=== PATIENT | female | born 1975 | race Caucasian/White ===

== ENCOUNTER 2016-07-31 17:41 | Emergency (ER) | payer MEDICARE, MEDICAID ==
[2016-07-31] MEDS ORDERED: predniSONE 20 MG TABLET PO STA (18:51)
[2016-07-31] MEDS ORDERED: GABAPENTIN 100 MG CAPSULE PO STA (18:51)
[2016-07-31] MEDS ORDERED: KETOROLAC 60 MG/2 ML VIAL IM STA (18:51)
[2016-07-31] MEDS ORDERED: HYDROmorphone 1 MG/ML SYRINGE IM STA ×2 (18:51→20:14)
--- NOTE | 2016-07-31 18:54 | ED Physician Documentation ---
PD HPI BACK PAIN - Stated complaint Stated Complaint: R SIDE BODY PAIN - Chief complaint Chief Complaint: Back Pain - History obtained from History obtained from: Patient - History of Present Illness Timing - onset: Other (longstading sharp pain R thigh, much worse over the last week with pain radiating around the R hip into medial thigh to knee with numbness in the corresponding area. Having trouble sleeping/walking due to pain. No saddle anesthesia or incontinence.) Review of Systems Constitutional: denies: Fever, Chills GI: denies: Abdominal Pain, Nausea, Vomiting : reports: Hysterectomy. denies: Dysuria, Frequency, Now EGA Musculoskeletal: denies: Neck pain PD PAST MEDICAL HISTORY - Past Medical History Musculoskeletal: Fibromyalgia - Past Surgical History Past Surgical History: Yes /FIELD CONSULTANT: section, Hysterectomy - Present Medications Home Medications: Ambulatory Orders Medication Instructions Recorded Confirmed traMADol [Ultram] 50 mg PO DAILY 12/19/12 05/04/15 Albuterol Sulfate [Proair Hfa 8.5 gm IH QID #1 hfa.aer.ad 05/04/15 Inhaler] Cephalexin [Keflex] 500 mg PO TID #20 capsule 05/04/15 Hydrocodone/Acetaminophen [[place] 1 each PO Q6H PRN #20 tablet 05/04/15 5-325 Tablet] predniSONE [Deltasone] 40 mg PO DAILY 5 Days 05/04/15 Oxycodone HCl/Acetaminophen 1 - 2 tab PO Q4H PRN #14 tablet 07/31/16 [Percocet 5-325 mg Tablet] Venlafaxine ER [Effexor ER] 37.5 mg PO DAILY #14 capsule 07/31/16 diazePAM [Valium] 5 mg PO TID PRN #10 tablet 07/31/16 predniSONE [Deltasone] 20 mg PO [id number] #21 tab 07/31/16 - Allergies Allergies/Adverse Reactions: Allergies Allergy/AdvReac Type Severity Reaction Status Date / Time erythromycin base AdvReac Intermediate throat Verified 07/31/16 18:00 [Erythromycin Base] swelling - Social History Does the pt smoke?: Yes Smoking Status: Current every day smoker Does the pt drink ETOH?: No Does the pt have substance abuse?: Yes - Immunizations Immunizations are current?: Yes PD ED PE NORMAL - Vitals Vital signs reviewed: Yes - General General: Alert and oriented X 3, No acute distress - Abdomen Abdomen: Soft, Non tender - Back Back: No CVA TTP, No spinal TTP - Extremities Extremities: Other (Partial numbness R anterior thigh and diminished R babinski reflex but equal patellar reflexes.) - Neuro Neuro: Alert and oriented X 3, Normal speech - Psych Psych: Normal mood, Normal affect Results - Vitals Vitals: Vital Signs - 24 hr 07/31/16 07/31/16 07/31/16 17:59 20:19 20:48 Temperature 36.9 C Heart Rate 71 60 65 Respiratory 14 18 16 Rate Blood Pressure 152/80 H 125/75 136/74 H O2 Saturation 100 100 100 07/31/16 21:53 Temperature Heart Rate 64 Respiratory 16 Rate Blood Pressure 115/72 O2 Saturation 98 Oxygen O2 Source Room air PD MEDICAL DECISION MAKING - ED course ED course: 41yo with fibromylagia now presents with L5 radicular pain without clinical evidence of spianl cord compression/cauda equina and nothing to suggest infection. She was administered gabapentin, Toradol, Dilaudid IM and prednisone orally. No relief from this, the Dilaudid was doubled to 2 mg and repeated., No relief , then given Valium IM with minimal relief and this was repeated. She wanted to go home. She was still having a lot of pain. She admitted to me that her medications were lost recently and she is out of her chronic Percocet. I wonder how much of that is contributing to her current pain crisis? Departure - Departure Disposition: 01 Home, Self Care Clinical Impression: Sciatica Qualifiers: Laterality: right Qualified Code(s): M54.31 - Sciatica, right side Condition: Good Record reviewed to determine appropriate education?: Yes Instructions: ED Sciatica Prescriptions: predniSONE [Deltasone] 20 mg PO [id number] #21 tab Venlafaxine ER [Effexor ER] 37.5 mg PO DAILY #14 capsule Oxycodone HCl/Acetaminophen [Percocet 5-325 mg Tablet] 1 - 2 tab PO Q4H PRN #14 tablet PRN Reason: Pain diazePAM [Valium] 5 mg PO TID PRN #10 tablet PRN Reason: Spasms Comments: Call your doctor to arrange a follow up appointment. Make the next available appointment. In the interim return anytime if worse or if new symptoms develop. Your blood pressure was elevated today on check in to the emergency department. This does not mean that you have hypertension, it is a common phenomenon to check into the emergency department and have elevated blood pressure. I recommend that you see your primary care physician within the week to have it rechecked when you're feeling better.
[2016-07-31] MEDS ORDERED: predniSONE 20 MG TABLET ONE (19:14)
[2016-07-31] MEDS ORDERED: HYDROmorphone 1 MG/ML SYRINGE ONE ×3 (19:14→20:16)
[2016-07-31] MEDS ORDERED: KETOROLAC 60 MG/2 ML VIAL ONE (19:15)
[2016-07-31] MEDS ORDERED: GABAPENTIN 100 MG CAPSULE PO ONE (19:15)
[2016-07-31] MEDS ORDERED: diazePAM INJ 5 MG/ML SYRINGE IM STA ×2 (20:53→21:45)
[2016-07-31] MEDS ORDERED: diazePAM INJ 5 MG/ML SYRINGE ONE ×2 (20:55→21:48)
[2016-07-31 22:26] VITALS: BP 118/65
== END 2016-07-31 22:26 | disposition home or self-care (01) ==
LOC: ED 17:41
DX: M54.31 Sciatica, right side (principal); M79.7 Fibromyalgia; R03.0 Elevated blood-pressure reading, without diagnosis of hypertension; F17.200 Nicotine dependence, unspecified, uncomplicated
CPT/HCPCS: 96372; 99283; 99284; A9270; J1170; J7512

== ENCOUNTER 2016-08-01 20:04 | Emergency (ER) | payer MEDICARE, MEDICAID ==
--- NOTE | 2016-08-01 21:08 | ED Physician Documentation ---
PD HPI BACK PAIN - Stated complaint Stated Complaint: SCIATICA - Chief complaint Chief Complaint: Ext Problem - History obtained from History obtained from: Patient - History of Present Illness Timing - onset: How many weeks ago (1) Timing - details: Gradual onset, Constant, Waxing and waning Pain level max: 10 Pain level now: 10 Location: Lower, Right Quality: Pain, Spasm Associated symptoms: No: Fever Improves with: Rest Worsened by: Movement Similar symptoms before: Diagnosis (sciatica) Recently seen: Emergency Dept (T+R yesterday from this ED for same; patient says she called PMD's office today, arranged for next available appointment which isn't until this coming Sunday. she returns due to worsening of right low back pain radiating down RLE to toes, exacerbated with movement, partially alleviated by rest) Review of Systems Constitutional: denies: Fever GI: denies: Abdominal Pain : reports: Frequency. 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, Hysterectomy - Present Medications Home Medications: Ambulatory Orders Medication Instructions Recorded Confirmed traMADol [Ultram] 50 mg PO DAILY 12/19/12 08/01/16 Albuterol Sulfate [Proair Hfa 8.5 gm IH QID #1 hfa.aer.ad 05/04/15 08/01/16 Inhaler] Cephalexin [Keflex] 500 mg PO TID #20 capsule 05/04/15 08/01/16 Hydrocodone/Acetaminophen [[place] 1 each PO Q6H PRN #20 tablet 05/04/15 08/01/16 5-325 Tablet] predniSONE [Deltasone] 40 mg PO DAILY 5 Days 05/04/15 08/01/16 Oxycodone HCl/Acetaminophen 1 - 2 tab PO Q4H PRN #14 tablet 07/31/16 08/01/16 [Percocet 5-325 mg Tablet] Venlafaxine ER [Effexor ER] 37.5 mg PO DAILY #14 capsule 07/31/16 08/01/16 diazePAM [Valium] 5 mg PO TID PRN #10 tablet 07/31/16 08/01/16 predniSONE [Deltasone] 20 mg PO [id number] #21 tab 07/31/16 08/01/16 HYDROmorphone [Dilaudid] 2 - 4 mg PO Q6H PRN #10 tablet 08/01/16 - Allergies Allergies/Adverse Reactions: Allergies Allergy/AdvReac Type Severity Reaction Status Date / Time erythromycin base AdvReac Intermediate throat Verified 08/01/16 20:13 [Erythromycin Base] swelling - Social History Does the pt smoke?: Yes Smoking Status: Current every day smoker Does the pt drink ETOH?: No Does the pt have substance abuse?: Yes - Immunizations Immunizations are current?: Yes PD ED PE NORMAL - Vitals Vital signs reviewed: Yes - General General: Alert and oriented X 3, Well developed/nourished, Other (appears to be in painful distress) - Back Back: No CVA TTP, No spinal TTP - Derm Derm: Normal color, Warm and dry, No rash - Extremities Extremities: No edema - Neuro Neuro: Alert and oriented X 3, No motor deficit, No sensory deficit, Other (2+/ 4 bilateral patella DTR) Results - Vitals Vitals: Vital Signs - 24 hr 08/01/16 08/01/16 20:11 22:03 Temperature 36.5 C 36.1 C L Heart Rate 95 82 Respiratory 16 20 Rate Blood Pressure 147/84 H 127/82 H O2 Saturation 96 98 Oxygen O2 Source Room air - Labs Labs: Laboratory Tests 08/01/16 22:31 Urine Color YELLOW Urine Clarity CLEAR Urine pH 5.5 Ur Specific [place] 1.020 Urine Protein NEGATIVE Urine Glucose (UA) NEGATIVE Urine Ketones NEGATIVE Urine Occult Blood TRACE-INTA Urine Nitrite NEGATIVE Urine Bilirubin NEGATIVE Urine Urobilinogen 0.2 (NORMAL) Ur Leukocyte Esterase NEGATIVE Ur Microscopic Review NOT INDICATED Urine Culture Comments NOT INDICATED PD MEDICAL DECISION MAKING - ED course Complexity details: reviewed old records, reviewed results, re-evaluated patient , considered differential, d/w patient Departure - Departure Disposition: 01 Home, Self Care Clinical Impression: Back pain, Sciatica Condition: Good Instructions: ED Sciatica Prescriptions: HYDROmorphone [Dilaudid] 2 - 4 mg PO Q6H PRN #10 tablet PRN Reason: Pain Discharge Date/Time: 08/01/16 23:42
[2016-08-01] MEDS ORDERED: diazePAM 5 MG TABLET PO STA (21:21)
[2016-08-01] MEDS ORDERED: HYDROmorphone 1 MG/ML SYRINGE IM STA ×3 (21:21→23:24)
[2016-08-01] MEDS ORDERED: HYDROmorphone 1 MG/ML SYRINGE ONE ×3 (21:29→23:31)
[2016-08-01] MEDS ORDERED: diazePAM 5 MG TABLET PO ONE (21:29)
[2016-08-01 22:04] VITALS: BP 127/82
[2016-08-01 22:39] LABS: BILIRUBIN,URINE NEGATIVE (NEGATIVE); PH,URINE 5.5 PH (5.0-7.5)
[2016-08-01 22:40] LABS: UA CHARGE (STRIP ONLY) YES; UR CULTURE IF IND NOT INDICATED
== END 2016-08-01 23:42 | disposition home or self-care (01) ==
LOC: ED 20:04
DX: M54.41 Lumbago with sciatica, right side (principal); M79.7 Fibromyalgia; F17.200 Nicotine dependence, unspecified, uncomplicated
CPT/HCPCS: 81003; 96372; 99283; A9270; J1170; 81001; 87086

== ENCOUNTER 2020-02-01 23:44 | Emergency (ER) | payer MEDICARE, MEDICAID ==
--- NOTE | 2020-02-02 00:18 | ED Physician Documentation ---
PD HPI LOWER EXT INJURY - Stated complaint Stated Complaint: FB IN LT FOOT - Chief complaint Chief Complaint: Wound - History obtained from History obtained from: Patient - History of Present Illness PD HPI LOW EXT INJURY LOCATION: Left, Foot Type of injury: Puncture wound, Foreign body Where injury occurred: Home Timing - onset: Enter time (23:30), Today Timing - details: Abrupt onset Recently seen: Not recently seen - Additional information Additional information: patient stepped on a toothpick at home at approximately 11:30 PM. She was barefoot. the toothpick punctured into her foot but she is unable to pull it out Review of Systems Skin: reports: Other (puncture to left foot plantar surface with FB still embedded) Musculoskeletal: reports: Extremity pain Neurologic: denies: Focal weakness, Numbness PD PAST MEDICAL HISTORY - Past Medical History Past Medical History: No Musculoskeletal: Fibromyalgia - Past Surgical History Past Surgical History: Yes /SPA ASSOCIATE: section, Hysterectomy - Present Medications Home Medications: Ambulatory Orders Medication Instructions Recorded Confirmed traMADol [Ultram] 50 mg PO DAILY 12/19/12 08/01/16 Albuterol Sulfate [Proair Hfa 8.5 gm IH QID #1 hfa.aer.ad 05/04/15 08/01/16 Inhaler] Cephalexin [Keflex] 500 mg PO TID #20 capsule 05/04/15 08/01/16 Hydrocodone/Acetaminophen [[place] 1 each PO Q6H PRN #20 tablet 05/04/15 08/01/16 5-325 Tablet] predniSONE [Deltasone] 40 mg PO DAILY 5 Days tablet 05/04/15 08/01/16 Oxycodone HCl/Acetaminophen 1 - 2 tab PO Q4H PRN #14 tablet 07/31/16 08/01/16 [Percocet 5-325 mg Tablet] Venlafaxine ER [Effexor ER] 37.5 mg PO DAILY #14 capsule 07/31/16 08/01/16 diazePAM [Valium] 5 mg PO TID PRN #10 tablet 07/31/16 08/01/16 predniSONE [Deltasone] 20 mg PO [id number] #21 tab 07/31/16 08/01/16 HYDROmorphone [Dilaudid] 2 - 4 mg PO Q6H PRN #10 tablet 08/01/16 - Allergies Allergies/Adverse Reactions: Allergies Allergy/AdvReac Type Severity Reaction Status Date / Time erythromycin base AdvReac Intermediate throat Verified 02/01/20 23:50 [Erythromycin Base] swelling - Social History Does the pt smoke?: Yes Smoking Status: Current every day smoker Does the pt drink ETOH?: No Does the pt have substance abuse?: Yes - Immunizations Immunizations are current?: Yes PD ED PE NORMAL - Vitals Vital signs reviewed: Yes - General General: Alert and oriented X 3, No acute distress (appears anxious), Well developed/nourished PD ED PE EXPANDED - Extremities Feet visual: 1 - laceration (embedded toothpick with approximately 0.5cm of the toothpick protruding from surface) Results - Vitals Vitals: Vital Signs - 24 hr 02/01/20 02/02/20 23:50 01:50 Temperature 36.8 C Heart Rate 88 87 Respiratory 16 16 Rate Blood Pressure 139/80 H 133/82 H O2 Saturation 98 97 Oxygen O2 Source Room air Procedures - FB removal FB location: Subcutaneous (left foot, plantar surface) FB removal preparation: Local anesthesia-specify (1% lidocaine, buffered), Other (ethyl cholride topical spary prior to injection of lidocaine) Removal method: Foreceps FB removal aftercare: No complications, Patient tolerated well, Removed successfully PD MEDICAL DECISION MAKING - ED course Complexity details: considered differential, d/w patient ED course: patient was very apprehensive regarding removing the FB. There was adequate portion protruding from the surface to provide a good silo worker and I offered the options of 1) removal as is 2) removal after infiltration with lidocaine 3) removal after PO oxycodone. I recommended the first option, as infiltration of lidocaine might be as painful as simply removing the FB. She requests option 2. She tolerated the procedure well and the toothpick was removed intact as implied by the end of the toothpick appearing sharp and without splintering Departure - Departure Disposition: 01 Home, Self Care Clinical Impression: Foreign body in foot Qualifiers: Encounter type: initial encounter Laterality: left Qualified Code(s): S90.852A - Superficial foreign body, left foot, initial encounter Condition: Good Instructions: ED Foreign Body Soft Tissue Removed, ED Foreign Body Splinter Rem oval Follow-Up: Esau Esposito DO [Primary Care Provider] - Comments: Clean the puncture site with soap and water twice per day, applying an antibiot ic ointment (such as bacitracin) after cleaning. Do this for one week Discharge Date/Time: 02/02/20 01:45
[2020-02-02] MEDS ORDERED: BUFFERED LIDOCAINE 10 ML SYRINGE IU STA (01:07)
[2020-02-02] MEDS ORDERED: BACITRACIN ZINC OINT 1 PACKET TOP STA (01:38)
[2020-02-02 01:51] VITALS: BP 133/82
== END 2020-02-02 01:45 | disposition home or self-care (01) ==
LOC: ED 23:44
DX: S91.342A Puncture wound with foreign body, left foot, initial encounter (principal); W45.8XXA Other foreign body or object entering through skin, initial encounter; W22.8XXA Striking against or struck by other objects, initial encounter; Y92.009 Unspecified place in unspecified non-institutional (private) residence as the place of occurrence of the external cause; F17.200 Nicotine dependence, unspecified, uncomplicated
CPT/HCPCS: 99281; 99282; A9270